=== PATIENT | female | born 1960 | race Two or more races ===

== ENCOUNTER 2023-12-07 18:19 | Inpatient (IN) | payer OTHER, MEDICAID ==
[~2023-12-07] VITALS: Ht 170.2 cm; Wt 63.4 kg
[2023-12-07 20:15] LABS: Basophils # (auto) 0.1 10 ^3/uL (0-0.2); Basophils % (auto) 0.6 % (0.0-2.0); Eosinophils # (auto) 0 10 ^3/uL (0-0.8); Eosinophils % (auto) 0.2 % (0.0-7.0); Hematocrit 45.7 % (36.0-46.0); Hemoglobin 15.6 g/dL (12.2-16.2); Lymphocytes # (auto) 0.8 10 ^3/uL (0.4-5.4); Lymphocytes % (auto) 7.9 % (10.0-50.0); Mean Corpuscular Hemoglobin 32.6 pg (28.0-32.0); Mean Corpuscular Hgb Conc. 34.1 g/dL (32.0-36.0); Mean Corpuscular Volume 95.6 fL (80.0-100.0); Monocytes # (auto) 0.6 10 ^3/uL (0-1.3); Monocytes % (auto) 5.9 % (0.0-12.0); Neutrophils # (auto) 8.7 10 ^3/uL (1.6-8.6); Neutrophils % (auto) 85.4 % (37.0-80.0); Nucleated Red Blood Cells % 0.1 %; Red Blood Cells 4.78 10^6/uL (4.0-5.20); Red Cell Distribution Width 12.2 % (11.8-14.3); White Blood Cell 10.2 10^3/uL (4.4-10.8)
[2023-12-07] MEDS: ONDANSETRON HCL 4 MG/2 ML VIAL IV ONE ×2 (20:21→21:40)
[2023-12-07] MEDS: SODIUM CHLORIDE 0.9% 1,000 ML IV ONE (20:21)
[2023-12-07] MEDS: MORPHINE SULFATE 4 MG/ML SYR/VIAL IV ONE ×2 (20:22→21:41)
[2023-12-07 20:25] LABS: INR 0.95 (0.9-1.15); Partial Thromboplastin Time 28.3 SEC (24.5-34.5)
[2023-12-07 20:36] LABS: Alanine Aminotransferase 17 U/L (7-40); Albumin 3.9 g/dL (3.2-4.8); Alkaline Phosphatase 92 U/L (46-116); Anion Gap 9 (5-15); Aspartate Aminotransferase 23 U/L (13-40); BUN/Creatinine Ratio 7.6 (10.0-20.0); Bilirubin, Total 0.5 mg/dL (0.2-1.0); Blood Urea Nitrogen 5 mg/dL (9-23); Calcium 8.6 mg/dL (8.7-10.4); Carbon Dioxide 26 mmol/L (20-30); Chloride 101 mmol/L (98-107); Magnesium 1.8 mg/dL (1.6-2.6); Sodium 136 mmol/L (136-145); Total Protein 6.4 g/dL (5.7-8.2)
[2023-12-07 20:41] LABS: Glucose 446 mg/dL (74-106)
[2023-12-07 23:27] VITALS: PULSE 78; RESP 20; O2SAT 94
[2023-12-08] VITALS (9 sets, daily range): BP systolic 119–143; BP diastolic 53–64; PULSE 78–89; RESP 12–19; TEMP 97.9–98.8; O2SAT 90–100
[2023-12-08] MEDS: ONDANSETRON HCL 4 MG/2 ML VIAL IV ONE (00:20)
[2023-12-08] MEDS: HYDROmorphone HCL 2 MG/ML VL/or syr IV ONE ×2 (00:21→11:35)
[2023-12-08] MEDS ORDERED: DEXTROSE (50%) 50ML SYRG IV PRN (00:30)
[2023-12-08] MEDS ORDERED: ACETAMINOPHEN 325 MG TAB PO PRN (00:30)
[2023-12-08] MEDS ORDERED: ONDANSETRON HCL 4 MG/2 ML VIAL IV PRN (00:30)
[2023-12-08] MEDS: SODIUM CHLORIDE 0.9% 1,000 ML IV SCH (01:42)
[2023-12-08] MEDS ORDERED: NITROGLYCERIN 0.4 MG SL TAB SL PRN (02:30)
[2023-12-08] MEDS: HYDROmorphone HCL 2 MG/ML VL/or syr IV PRN (03:11)
[2023-12-08] MEDS: HYDROcodone-ACET 5/325MG TAB PO PRN (05:13)
[2023-12-08 05:47] LABS: Alanine Aminotransferase 20 U/L (7-40); Albumin 3.8 g/dL (3.2-4.8); Alkaline Phosphatase 93 U/L (46-116); Anion Gap 9 (5-15); Aspartate Aminotransferase 21 U/L (13-40); BUN/Creatinine Ratio 12.5 (10.0-20.0); Blood Urea Nitrogen 8 mg/dL (9-23); Calcium 8.7 mg/dL (8.7-10.4); Carbon Dioxide 27 mmol/L (20-30); Chloride 102 mmol/L (98-107); Potassium 4.4 mmol/L (3.5-5.1); Sodium 138 mmol/L (136-145)
[2023-12-08 05:48] LABS: Basophils # (auto) 0 10 ^3/uL (0-0.2); Basophils % (auto) 0.4 % (0.0-2.0); Bilirubin, Total 0.8 mg/dL (0.2-1.0); Eosinophils # (auto) 0 10 ^3/uL (0-0.8); Eosinophils % (auto) 0.1 % (0.0-7.0); Hematocrit 43.7 % (36.0-46.0); Hemoglobin 14.8 g/dL (12.2-16.2); Lymphocytes # (auto) 0.8 10 ^3/uL (0.4-5.4); Lymphocytes % (auto) 8.5 % (10.0-50.0); Mean Corpuscular Hemoglobin 32.6 pg (28.0-32.0); Mean Corpuscular Hgb Conc. 33.8 g/dL (32.0-36.0); Mean Corpuscular Volume 96.4 fL (80.0-100.0); Monocytes # (auto) 0.7 10 ^3/uL (0-1.3); Monocytes % (auto) 7.6 % (0.0-12.0); Neutrophils # (auto) 8.2 10 ^3/uL (1.6-8.6); Neutrophils % (auto) 83.4 % (37.0-80.0); Nucleated Red Blood Cells % 0.1 %; Red Blood Cells 4.53 10^6/uL (4.0-5.20); Total Protein 6.2 g/dL (5.7-8.2); White Blood Cell 9.8 10^3/uL (4.4-10.8)
[2023-12-08 05:53] LABS: Glucose 409 mg/dL (74-106)
[2023-12-08] MEDS: ACCU-CHEK COMFORT CURVE STRIP VI SCH (06:38)
[2023-12-08] MEDS: InsuLIN REG 1unit/0.01ml Soln (100units/ml) SC SCH ×2 (06:43→22:12)
[2023-12-08] MEDS: ENOXAPARIN SOD 40 MG/0.4 ML SYRINGE SC SCH (09:32)
[2023-12-08 09:42] LABS: Urine Bacteria NONE SEEN /hpf (None Seen); Urine Blood Negative /uL (Negative); Urine Clarity Clear (Clear); Urine Color Colorless (Yellow); Urine Protein, UAD Negative (Negative); Urine Specific Gravity 1.039 (1.001-1.035); Urine Urobilinogen Normal (Negative); Urine WBC <1 /hpf (0 - 5)
[2023-12-08] MEDS: HYDROcodone-ACET 10/325MG TAB PO PRN ×2 (13:54→18:07)
[2023-12-08] MEDS: INSULIN LANTUS (GLARGINE) 1 /0.01ml (100units/ml) SC SCH (13:57)
[2023-12-08] MEDS: ALBUTEROL SULF 2.5 MG/0.5ML(0.5%) NEB SOLN NEB PRN (16:25)
[2023-12-08] MEDS: ALBUTEROL SULF 2.5 MG/0.5ML(0.5%) NEB SOLN NEB SCH (19:41)
[2023-12-08] MEDS: IPRATROPIUM BROM 0.5 MG/2.5ML INH SOL NEB SCH (19:42)
[2023-12-09] VITALS (15 sets, daily range): BP systolic 89–138; BP diastolic 46–82; PULSE 75–105; RESP 14–22; TEMP 97.6–99.2; O2SAT 91–98
[2023-12-09] MEDS ORDERED: SIMV80TA17 PO (00:36)
[2023-12-09] MEDS ORDERED: GABA-339 PO (00:36)
[2023-12-09] MEDS ORDERED: TRAZ-228 PO (00:36)
[2023-12-09] MEDS ORDERED: INSLANTI SC (00:36)
[2023-12-09] MEDS ORDERED: LEVO25TA6 PO (00:36)
[2023-12-09] MEDS ORDERED: INSU100I28 IJ (00:36)
[2023-12-09] MEDS ORDERED: METF-371 PO (00:36)
[2023-12-09 06:33] LABS: Basophils # (auto) 0.1 10 ^3/uL (0-0.2); Basophils % (auto) 0.9 % (0.0-2.0); Eosinophils # (auto) 0.1 10 ^3/uL (0-0.8); Eosinophils % (auto) 0.7 % (0.0-7.0); Hematocrit 42.6 % (36.0-46.0); Hemoglobin 14.6 g/dL (12.2-16.2); Lymphocytes # (auto) 0.9 10 ^3/uL (0.4-5.4); Lymphocytes % (auto) 9.3 % (10.0-50.0); Mean Corpuscular Hemoglobin 32.9 pg (28.0-32.0); Mean Corpuscular Hgb Conc. 34.3 g/dL (32.0-36.0); Mean Corpuscular Volume 95.8 fL (80.0-100.0); Monocytes # (auto) 0.7 10 ^3/uL (0-1.3); Monocytes % (auto) 7.9 % (0.0-12.0); Neutrophils # (auto) 7.7 10 ^3/uL (1.6-8.6); Neutrophils % (auto) 81.2 % (37.0-80.0); Nucleated Red Blood Cells % 0.1 %; Red Blood Cells 4.44 10^6/uL (4.0-5.20); White Blood Cell 9.4 10^3/uL (4.4-10.8)
[2023-12-09 06:56] LABS: Alanine Aminotransferase 81 U/L (7-40); Albumin 3.7 g/dL (3.2-4.8); Alkaline Phosphatase 201 U/L (46-116); Anion Gap 6 (5-15); Aspartate Aminotransferase 170 U/L (13-40); Blood Urea Nitrogen 12 mg/dL (9-23); Carbon Dioxide 32 mmol/L (20-30); Chloride 104 mmol/L (98-107); Glucose 114 mg/dL (74-106); Potassium 3.7 mmol/L (3.5-5.1); Sodium 142 mmol/L (136-145)
[2023-12-09 06:57] LABS: Bilirubin, Total 0.7 mg/dL (0.2-1.0); Total Protein 5.9 g/dL (5.7-8.2)
[2023-12-09] MEDS ORDERED: diphenhdrAMINE HCL 50 MG/1 ML VL IV PRN (11:30)
[2023-12-09] MEDS ORDERED: LEVO125T7 PO (12:54)
[2023-12-09] MEDS: GABAPENTIN 300 MG CAP PO SCH (14:14)
[2023-12-09] MEDS: traMADol HCL 50 MG TAB PO ONE (18:54)
[2023-12-09] MEDS: traZODone HCL 50 MG TAB PO SCH (22:24)
[2023-12-10] VITALS (15 sets, daily range): BP systolic 92–137; BP diastolic 61–84; PULSE 90–110; RESP 12–18; TEMP 97.7–98.4; O2SAT 90–98
[2023-12-10] MEDS: LEVOTHYROXINE SODIUM 50 MCG TAB PO SCH (05:47)
[2023-12-10 06:11] LABS: Basophils # (auto) 0 10 ^3/uL (0-0.2); Basophils % (auto) 0.5 % (0.0-2.0); Eosinophils # (auto) 0.1 10 ^3/uL (0-0.8); Eosinophils % (auto) 1.1 % (0.0-7.0); Hematocrit 40.7 % (36.0-46.0); Hemoglobin 13.8 g/dL (12.2-16.2); Mean Corpuscular Hemoglobin 32.5 pg (28.0-32.0); Mean Corpuscular Volume 95.7 fL (80.0-100.0); Monocytes # (auto) 0.5 10 ^3/uL (0-1.3); Monocytes % (auto) 6.6 % (0.0-12.0); Neutrophils # (auto) 6.5 10 ^3/uL (1.6-8.6); Neutrophils % (auto) 79.8 % (37.0-80.0); Red Blood Cells 4.25 10^6/uL (4.0-5.20); Red Cell Distribution Width 11.8 % (11.8-14.3); White Blood Cell 8.2 10^3/uL (4.4-10.8)
[2023-12-10 06:18] LABS: Anion Gap 7 (5-15); Carbon Dioxide 30 mmol/L (20-30); Chloride 102 mmol/L (98-107); Potassium 3.6 mmol/L (3.5-5.1); Sodium 139 mmol/L (136-145)
[2023-12-10 06:19] LABS: Calcium 8.5 mg/dL (8.5-10.1)
[2023-12-10 06:24] LABS: BUN/Creatinine Ratio 39.6 (10.0-20.0); Blood Urea Nitrogen 19 mg/dL (9-23); Glucose 127 mg/dL (74-106)
[2023-12-11] VITALS (22 sets, daily range): BP systolic 87–131; BP diastolic 51–89; PULSE 81–101; RESP 18–20; TEMP 97.8–98.3; O2SAT 86–100
[2023-12-11 06:23] LABS: Anion Gap 6 (5-15); Carbon Dioxide 32 mmol/L (20-30); Chloride 99 mmol/L (98-107); Potassium 3.8 mmol/L (3.5-5.1); Sodium 137 mmol/L (136-145)
[2023-12-11 06:24] LABS: Calcium 8.6 mg/dL (8.5-10.1)
[2023-12-11 06:27] LABS: Basophils # (auto) 0 10 ^3/uL (0-0.2); Basophils % (auto) 0.4 % (0.0-2.0); Eosinophils # (auto) 0.1 10 ^3/uL (0-0.8); Eosinophils % (auto) 0.9 % (0.0-7.0); Hematocrit 40.6 % (36.0-46.0); Hemoglobin 13.9 g/dL (12.2-16.2); Lymphocytes # (auto) 0.6 10 ^3/uL (0.4-5.4); Lymphocytes % (auto) 7.6 % (10.0-50.0); Mean Corpuscular Hemoglobin 32.8 pg (28.0-32.0); Mean Corpuscular Hgb Conc. 34.2 g/dL (32.0-36.0); Monocytes # (auto) 0.4 10 ^3/uL (0-1.3); Monocytes % (auto) 5.9 % (0.0-12.0); Neutrophils # (auto) 6.3 10 ^3/uL (1.6-8.6); Neutrophils % (auto) 85.2 % (37.0-80.0); Red Blood Cells 4.23 10^6/uL (4.0-5.20); Red Cell Distribution Width 12.1 % (11.8-14.3); White Blood Cell 7.4 10^3/uL (4.4-10.8)
[2023-12-11 06:29] LABS: BUN/Creatinine Ratio 24.5 (10.0-20.0); Blood Urea Nitrogen 12 mg/dL (9-23); Glucose 214 mg/dL (74-106)
[2023-12-11] MEDS ORDERED: MORPHINE SULF PF 5 MG/10 ML VIAL ONE (10:35)
[2023-12-11] MEDS ORDERED: KETAMINE 50mg/ML 1ml syringe ONE (10:35)
[2023-12-11] MEDS ORDERED: MIDAZOLAM HCL 2MG/2ML 2ml VIAL (1mg/ml) ONE (10:35)
[2023-12-11] MEDS ORDERED: fentaNYL CITRATE 100 MCG/2 ML VL ONE (10:35)
[2023-12-11] MEDS ORDERED: DexAMETHasone SOD PHOS 10MG/1ML VIAL INJ ONE (10:36)
[2023-12-11] MEDS ORDERED: PROPOFOL 10 MG/ML 20 ML IV ONE (10:36)
[2023-12-11] MEDS ORDERED: ONDANSETRON HCL 4 MG/2 ML VIAL ONE (10:36)
[2023-12-11] MEDS ORDERED: GLYCOPYRROLATE 0.2 MG/ML 1ML VIAL ONE (10:36)
[2023-12-11] MEDS: ceFAZolin 2 GM/D5W50ml 50 ML IV ONE (10:45)
[2023-12-11] MEDS: TRANEXAMIC ACID 20 ML ONE (13:50)
[2023-12-11] MEDS: BUPIVACAINE 0.5% P/F INJ 10 ML VIAL ONE (13:50)
[2023-12-11] MEDS ORDERED: ONDANSETRON HCL 4 MG/2 ML VIAL IV PRN (14:45)
[2023-12-11] MEDS: ACCU-CHEK COMFORT CURVE STRIP VI ONE (14:45)
[2023-12-11] MEDS ORDERED: NALOXONE HCL 0.4 MG/ML VIAL IV PRN (14:45)
[2023-12-11] MEDS ORDERED: diphenhdrAMINE HCL 50 MG/1 ML VL IV PRN (14:45)
[2023-12-11] MEDS ORDERED: DexAMETHasone SOD PHOS 10MG/1ML VIAL INJ IV PRN (14:45)
[2023-12-11] MEDS: LACTATED RINGER'S 1,000 ML IV SCH (15:15)
[2023-12-11] MEDS ORDERED: ceFAZolin 1GM/50ML 50 ML IV SCH (15:15)
[2023-12-11] MEDS: CLINDAMYCIN 600MG IV 50 ML IV SCH (18:16)
[2023-12-11] MEDS: ceFAZolin 1GM/50ML 50 ML IV SCH (20:12)
[2023-12-11] MEDS: KETOROLAC TROMETH 30 MG/ML 1ML VIAL IV PRN (20:26)
[2023-12-11] MEDS: SODIUM CHLORIDE 0.9% 500 ML IV ONE (23:33)
[2023-12-12] VITALS (87 sets, daily range): BP systolic 62–146; BP diastolic 41–117; PULSE 56–95; RESP 11–23; TEMP 97.7–98.5; O2SAT 84–100
[2023-12-12] MEDS: PHENYLEPHRINE IV 250 ML IV SCH (03:25)
[2023-12-12 04:14] LABS: Basophils # (auto) 0 10 ^3/uL (0-0.2); Eosinophils # (auto) 0 10 ^3/uL (0-0.8); Hematocrit 39.1 % (36.0-46.0); Hemoglobin 13.2 g/dL (12.2-16.2); Lymphocytes # (auto) 0.4 10 ^3/uL (0.4-5.4); Lymphocytes % (auto) 5.2 % (10.0-50.0); Mean Corpuscular Hemoglobin 32.6 pg (28.0-32.0); Mean Corpuscular Hgb Conc. 33.9 g/dL (32.0-36.0); Mean Corpuscular Volume 96.4 fL (80.0-100.0); Monocytes # (auto) 0.3 10 ^3/uL (0-1.3); Neutrophils # (auto) 7.2 10 ^3/uL (1.6-8.6); Neutrophils % (auto) 90.8 % (37.0-80.0); Nucleated Red Blood Cells % 0.2 %; Red Blood Cells 4.06 10^6/uL (4.0-5.20); White Blood Cell 7.9 10^3/uL (4.4-10.8)
[2023-12-12 05:01] LABS: Alanine Aminotransferase 46 U/L (7-40); Albumin 3.2 g/dL (3.2-4.8); Alkaline Phosphatase 173 U/L (46-116); Anion Gap 11 (5-15); Aspartate Aminotransferase 22 U/L (13-40); BUN/Creatinine Ratio 30.5 (10.0-20.0); Bilirubin, Total 0.6 mg/dL (0.2-1.0); Blood Urea Nitrogen 18 mg/dL (9-23); Calcium 8.7 mg/dL (8.5-10.1); Carbon Dioxide 25 mmol/L (20-30); Chloride 99 mmol/L (98-107); Glucose 350 mg/dL (74-106); Potassium 4.4 mmol/L (3.5-5.1); Sodium 135 mmol/L (136-145); Total Protein 5.2 g/dL (5.7-8.2)
[2023-12-12] MEDS ORDERED: DEXTROSE (50%) 50ML SYRG IV PRN (14:30)
[2023-12-12] MEDS: SODIUM CHLORIDE 0.9% 250 ML IV ONE (15:45)
[2023-12-12] MEDS: ACCU-CHEK COMFORT CURVE STRIP VI SCH (16:39)
[2023-12-12] MEDS: InsuLIN REG 1unit/0.01ml Soln (100units/ml) SC SCH (16:48)
[2023-12-12] MEDS: Glucerna Carbsteady SHAKE Vanilla 8oz PO SCH (18:25)
[2023-12-12] MEDS: MORPHINE SULFATE INJ 2 MG/ml SYRG IV PRN (20:02)
[2023-12-12] MEDS ORDERED: ALBUMIN 5% 250 ML IV PRN (20:15)
[2023-12-13] VITALS (14 sets, daily range): BP systolic 98–119; BP diastolic 45–59; PULSE 70–101; RESP 16–20; TEMP 98–98.9; O2SAT 90–99
[2023-12-13 06:11] LABS: Basophils # (auto) 0 10 ^3/uL (0-0.2); Basophils % (auto) 0.4 % (0.0-2.0); Eosinophils # (auto) 0.1 10 ^3/uL (0-0.8); Eosinophils % (auto) 1.5 % (0.0-7.0); Hemoglobin 10.9 g/dL (12.2-16.2); Lymphocytes % (auto) 15.8 % (10.0-50.0); Mean Corpuscular Hemoglobin 32.9 pg (28.0-32.0); Mean Corpuscular Hgb Conc. 34.2 g/dL (32.0-36.0); Mean Corpuscular Volume 96.3 fL (80.0-100.0); Monocytes # (auto) 0.5 10 ^3/uL (0-1.3); Monocytes % (auto) 8.5 % (0.0-12.0); Neutrophils # (auto) 4.5 10 ^3/uL (1.6-8.6); Neutrophils % (auto) 73.8 % (37.0-80.0); Red Blood Cells 3.32 10^6/uL (4.0-5.20); Red Cell Distribution Width 11.9 % (11.8-14.3); White Blood Cell 6.2 10^3/uL (4.4-10.8)
[2023-12-13 06:22] LABS: Alanine Aminotransferase 21 U/L (7-40); Albumin 2.8 g/dL (3.2-4.8); Alkaline Phosphatase 117 U/L (46-116); Anion Gap 4 (5-15); Aspartate Aminotransferase 11 U/L (13-40); BUN/Creatinine Ratio 59.1 (10.0-20.0); Blood Urea Nitrogen 26 mg/dL (9-23); Calcium 8.5 mg/dL (8.5-10.1); Carbon Dioxide 30 mmol/L (20-30); Chloride 106 mmol/L (98-107); Glucose 139 mg/dL (74-106); Potassium 3.8 mmol/L (3.5-5.1); Sodium 140 mmol/L (136-145)
[2023-12-13 06:23] LABS: Bilirubin, Total 0.4 mg/dL (0.2-1.0); Total Protein 4.8 g/dL (5.7-8.2)
[2023-12-13] MEDS: INSULIN LANTUS (GLARGINE) 1 /0.01ml (100units/ml) SC SCH (09:07)
[2023-12-13] MEDS: cefTRIAXone 1GM/50ML D5W 50 ML IV SCH (15:22)
[2023-12-14] VITALS (12 sets, daily range): BP systolic 102–134; BP diastolic 44–78; PULSE 81–102; RESP 16–18; TEMP 98.1–98.7; O2SAT 90–98
[2023-12-14 05:39] LABS: Hematocrit 35.5 % (36.0-46.0); Hemoglobin 12.2 g/dL (12.2-16.2)
[2023-12-14] MEDS: DOCUSATE SOD 100 MG CAP PO PRN (12:02)
[2023-12-14] MEDS: IPRATROPIUM BROM 0.5 MG/2.5ML INH SOL NEB SCH (19:50)
[2023-12-14] MEDS: ALBUTEROL SULF 2.5 MG/0.5ML(0.5%) NEB SOLN NEB SCH (19:50)
[2023-12-15] VITALS (11 sets, daily range): BP systolic 114–153; BP diastolic 62–75; PULSE 54–110; RESP 18–20; TEMP 98.3–98.7; O2SAT 90–99
[2023-12-15] MEDS: LACTULOSE 20Gm/30ML SOLN PO ONE (10:31)
[2023-12-15] MEDS: MORPHINE SULFATE INJ 2 MG/ml SYRG IV PRN (12:30)
[2023-12-16] VITALS (14 sets, daily range): BP systolic 108–123; BP diastolic 59–67; PULSE 81–99; RESP 15–18; TEMP 98.1–98.8; O2SAT 82–97
[2023-12-16 07:13] LABS: Basophils # (auto) 0 10 ^3/uL (0-0.2); Basophils % (auto) 0.6 % (0.0-2.0); Eosinophils # (auto) 0.2 10 ^3/uL (0-0.8); Eosinophils % (auto) 2.5 % (0.0-7.0); Hematocrit 35.1 % (36.0-46.0); Hemoglobin 11.8 g/dL (12.2-16.2); Lymphocytes # (auto) 0.8 10 ^3/uL (0.4-5.4); Mean Corpuscular Hgb Conc. 33.5 g/dL (32.0-36.0); Mean Corpuscular Volume 95.5 fL (80.0-100.0); Monocytes # (auto) 0.6 10 ^3/uL (0-1.3); Monocytes % (auto) 8.2 % (0.0-12.0); Neutrophils # (auto) 5.7 10 ^3/uL (1.6-8.6); Neutrophils % (auto) 77.7 % (37.0-80.0); Red Blood Cells 3.68 10^6/uL (4.0-5.20); Red Cell Distribution Width 12.3 % (11.8-14.3); White Blood Cell 7.3 10^3/uL (4.4-10.8)
[2023-12-16 07:35] LABS: Alanine Aminotransferase 29 U/L (7-40); Alkaline Phosphatase 112 U/L (46-116); Anion Gap 5 (5-15); Aspartate Aminotransferase 30 U/L (13-40); BUN/Creatinine Ratio 42.2 (10.0-20.0); Bilirubin, Total 0.5 mg/dL (0.2-1.0); Blood Urea Nitrogen 19 mg/dL (9-23); Calcium 8.3 mg/dL (8.5-10.1); Carbon Dioxide 29 mmol/L (20-30); Chloride 105 mmol/L (98-107); Glucose 80 mg/dL (74-106); Potassium 3.8 mmol/L (3.5-5.1); Sodium 139 mmol/L (136-145); Total Protein 5.1 g/dL (5.7-8.2)
[2023-12-16] MEDS ORDERED: DEXTROSE (50%) 50ML SYRG IV PRN (11:15)
[2023-12-16] MEDS: ACCU-CHEK COMFORT CURVE STRIP VI SCH (11:40)
[2023-12-16] MEDS: InsuLIN REG 1unit/0.01ml Soln (100units/ml) SC SCH ×2 (11:43→21:38)
[2023-12-17] VITALS (14 sets, daily range): BP systolic 108–153; BP diastolic 52–83; PULSE 68–94; RESP 14–18; TEMP 97.7–98.6; O2SAT 90–99
[2023-12-18] VITALS (9 sets, daily range): BP systolic 110–116; BP diastolic 60–66; PULSE 77–94; RESP 15–20; TEMP 97.9–98.6; O2SAT 91–99
[2023-12-18] MEDS: INSULIN LANTUS (GLARGINE) 1 /0.01ml (100units/ml) SC SCH (08:46)
[2023-12-18] MEDS: HYDROcodone-ACET 5/325MG TAB PO PRN (13:34)
[2023-12-19] VITALS (13 sets, daily range): BP systolic 105–134; BP diastolic 56–78; PULSE 79–89; RESP 16–19; TEMP 97.8–98.4; O2SAT 93–100
[2023-12-20] VITALS (11 sets, daily range): BP systolic 112–124; BP diastolic 62–66; PULSE 71–91; RESP 16–20; TEMP 98–98.1; O2SAT 91–98
[2023-12-20] MEDS ORDERED: INSLANTI SC (09:01)
[2023-12-20] MEDS ORDERED: ENO40SY SUBCUT ×2 (09:01→09:25)
[2023-12-20] MEDS: INSULIN LANTUS (GLARGINE) 1 /0.01ml (100units/ml) SC SCH (10:54)
== END 2023-12-20 15:35 | disposition home or self-care (01) | DRG 480 ==
LOC: ER 18:19 → EDBD 18:19 → TELE 12-08 02:30 → TELE-WESTW 12-08 23:09 → ICU WEST 12-12 02:59 → TELE-EAST 12-12 21:45 → EAST 12-13 01:45 → TELE-EAST 12-13 07:28 → EAST 12-16 11:07
PROVIDERS: ADMIT Nurse Practitioner Family; ATTEND Internal Medicine
PROC: 0QS704Z Reposition Left Upper Femur with Internal Fixation Device, Open Approach (ICD-10-PCS; principal; 2023-12-08)
DX: S72.142A Displaced intertrochanteric fracture of left femur, initial encounter for closed fracture (principal); J96.20 Acute and chronic respiratory failure, unspecified whether with hypoxia or hypercapnia; E11.65 Type 2 diabetes mellitus with hyperglycemia; W01.0XXA Fall on same level from slipping, tripping and stumbling without subsequent striking against object, initial encounter; J44.9 Chronic obstructive pulmonary disease, unspecified; E03.9 Hypothyroidism, unspecified; E11.42 Type 2 diabetes mellitus with diabetic polyneuropathy; G62.9 Polyneuropathy, unspecified; E78.00 Pure hypercholesterolemia, unspecified; I95.9 Hypotension, unspecified; F17.210 Nicotine dependence, cigarettes, uncomplicated; R74.01 Elevation of levels of liver transaminase levels; I51.7 Cardiomegaly; Z79.4 Long term (current) use of insulin; Z80.9 Family history of malignant neoplasm, unspecified; Z79.899 Other long term (current) drug therapy; Z59.7 Insufficient social insurance and welfare support; Y93.89 Activity, other specified; Y92.89 Other specified places as the place of occurrence of the external cause; Y99.8 Other external cause status
CPT/HCPCS: 36415; 71045; 72170; 72192; 73501; 73502; 76000; 80048; 80053; 81001; 82962; 83036; 83735; 84443; 85014; 85018; 85025; 85610; 85730; 86850; 86900; 86901; 87081; 87086; 93306; 94640; 96374; 96375; 97110; 97116; 97163; 97530; A4565; G0378; J1100; J1815; J1885; J2250; J2405; J2704; J3490

== ENCOUNTER 2024-01-27 08:38 | Inpatient (IN) | payer MEDICAID, OTHER ==
[~2024-01-27] VITALS: Ht 165.1 cm; Wt 44.1 kg
[~2024-01-27 08:38] MED LIST: ENO40SY SUBCUT; GABA-339 PO; INSLANTI SC; INSU100I28 IJ; LEVO125T7 PO; METF-371 PO; SIMV80TA17 PO; TRAZ-228 PO
[2024-01-27 10:45] LABS: Basophils # (auto) 0.1 10 ^3/uL (0-0.2); Basophils % (auto) 0.6 % (0.0-2.0); Eosinophils # (auto) 0 10 ^3/uL (0-0.8); Eosinophils % (auto) 0.4 % (0.0-7.0); Hematocrit 48.3 % (36.0-46.0); Hemoglobin 16.5 g/dL (12.2-16.2); Lymphocytes # (auto) 1.6 10 ^3/uL (0.4-5.4); Lymphocytes % (auto) 17.3 % (10.0-50.0); Mean Corpuscular Hemoglobin 32.4 pg (28.0-32.0); Mean Corpuscular Hgb Conc. 34.1 g/dL (32.0-36.0); Monocytes # (auto) 0.7 10 ^3/uL (0-1.3); Monocytes % (auto) 7.6 % (0.0-12.0); Neutrophils # (auto) 6.8 10 ^3/uL (1.6-8.6); Neutrophils % (auto) 74.1 % (37.0-80.0); Nucleated Red Blood Cells % 0.1 %; Red Blood Cells 5.08 10^6/uL (4.0-5.20); Red Cell Distribution Width 12.9 % (11.8-14.3); White Blood Cell 9.3 10^3/uL (4.4-10.8)
[2024-01-27 10:58] LABS: Chloride 101 mmol/L (98-107); Sodium 136 mmol/L (136-145)
[2024-01-27 10:59] LABS: Anion Gap 6 (5-15); Calcium 9.7 mg/dL (8.5-10.1); Carbon Dioxide 29 mmol/L (20-30)
[2024-01-27 11:04] LABS: BUN/Creatinine Ratio 15.5 (10.0-20.0); Blood Urea Nitrogen 9 mg/dL (9-23); Glucose 141 mg/dL (74-106)
[2024-01-27 11:45] LABS: Erythrocyte Sedimentation Rate 10 mm/hr (0-20)
[2024-01-27] MEDS ORDERED: ONDANSETRON HCL 4 MG/2 ML VIAL IV PRN (15:45)
[2024-01-27] MEDS ORDERED: ACETAMINOPHEN 325 MG TAB PO PRN (15:45)
[2024-01-27] MEDS ORDERED: MORPHINE SULFATE INJ 2 MG/ml SYRG IV PRN (15:45)
[2024-01-27] MEDS ORDERED: NITROGLYCERIN 0.4 MG SL TAB SL PRN (15:45)
[2024-01-27] MEDS ORDERED: IPRATROPIUM BROM 0.5 MG/2.5ML INH SOL NEB PRN (16:15)
[2024-01-27] MEDS ORDERED: ALBUTEROL SULF 2.5 MG/0.5ML(0.5%) NEB SOLN NEB PRN (16:15)
[2024-01-27] MEDS ORDERED: DEXTROSE (50%) 50ML SYRG IV PRN (16:15)
[2024-01-27] MEDS: HYDROcodone-ACET 5/325MG TAB PO PRN (17:03)
[2024-01-27] MEDS: cefTRIAXone 1GM/50ML D5W 50 ML IV ONE (17:03)
[2024-01-27] MEDS: ACCU-CHEK COMFORT CURVE STRIP VI SCH (17:22)
[2024-01-27] MEDS: InsuLIN REG 1unit/0.01ml Soln (100units/ml) SC SCH (17:26)
[2024-01-27] MEDS: GABAPENTIN 300 MG CAP PO SCH (23:06)
[2024-01-27 23:40] VITALS: PULSE 82; RESP 14; O2SAT 95
[2024-01-28] VITALS (7 sets, daily range): BP systolic 103–130; BP diastolic 57–81; PULSE 81–95; RESP 14–19; TEMP 97.6–98.2; O2SAT 92–97
[2024-01-28] MEDS: MORPHINE SULFATE INJ 2 MG/ml SYRG IV PRN (00:30)
[2024-01-28] MEDS: LEVOTHYROXINE SODIUM 100 MCG TAB PO SCH (06:16)
[2024-01-28] MEDS: LEVOTHYROXINE SODIUM 25 MCG TAB PO SCH (06:16)
[2024-01-28 06:30] LABS: Albumin 3.8 g/dL (3.2-4.8); Alkaline Phosphatase 85 U/L (46-116); Anion Gap 5 (5-15); Blood Urea Nitrogen 16 mg/dL (9-23); Carbon Dioxide 31 mmol/L (20-30); Chloride 103 mmol/L (98-107); Glucose 78 mg/dL (74-106); Potassium 3.8 mmol/L (3.5-5.1); Sodium 139 mmol/L (136-145)
[2024-01-28 06:31] LABS: Aspartate Aminotransferase 12 U/L (13-40); Total Protein 5.8 g/dL (5.7-8.2)
[2024-01-28 06:32] LABS: Basophils # (auto) 0 10 ^3/uL (0-0.2); Basophils % (auto) 0.7 % (0.0-2.0); Eosinophils # (auto) 0.1 10 ^3/uL (0-0.8); Eosinophils % (auto) 1.8 % (0.0-7.0); Hematocrit 41.3 % (36.0-46.0); Lymphocytes # (auto) 1.3 10 ^3/uL (0.4-5.4); Lymphocytes % (auto) 20.3 % (10.0-50.0); Mean Corpuscular Hemoglobin 31.8 pg (28.0-32.0); Mean Corpuscular Hgb Conc. 33.9 g/dL (32.0-36.0); Mean Corpuscular Volume 93.9 fL (80.0-100.0); Monocytes # (auto) 0.6 10 ^3/uL (0-1.3); Monocytes % (auto) 9.3 % (0.0-12.0); Neutrophils # (auto) 4.4 10 ^3/uL (1.6-8.6); Neutrophils % (auto) 67.9 % (37.0-80.0); Nucleated Red Blood Cells % 0.2 %; Red Blood Cells 4.39 10^6/uL (4.0-5.20); Red Cell Distribution Width 12.9 % (11.8-14.3); White Blood Cell 6.4 10^3/uL (4.4-10.8)
[2024-01-28 06:46] LABS: Alanine Aminotransferase < 9 U/L (7-40)
[2024-01-28] MEDS: cefTRIAXone 1GM/50ML D5W 50 ML IV SCH (10:19)
[2024-01-28] MEDS: traZODone HCL 50 MG TAB PO SCH (10:38)
[2024-01-28] MEDS: ATORVASTATIN 20 MG TAB PO SCH (10:39)
[2024-01-28] MEDS: INSULIN LANTUS (GLARGINE) 1 /0.01ml (100units/ml) SC SCH (10:39)
[2024-01-28] MEDS: GABAPENTIN 300 MG CAP ONE ×2 (10:49→10:50)
[2024-01-28] MEDS: LEVOTHYROXINE SODIUM 25 MCG TAB ONE (10:50)
[2024-01-28] MEDS: LEVOTHYROXINE SODIUM 100 MCG TAB ONE (10:50)
[2024-01-28] MEDS: METHOCARBAMOL 500 MG TAB PO SCH (14:05)
[2024-01-29 01:01] VITALS: BP 110/67; PULSE 81; RESP 16; TEMP 97.7; O2SAT 92
[2024-01-29] MEDS: DOCUSATE SOD 100 MG CAP PO PRN (03:36)
[2024-01-29 05:00] VITALS: BP 136/77; PULSE 82; RESP 16; TEMP 98; O2SAT 94
[2024-01-29] MEDS ORDERED: METH-1181 PO (09:14)
[2024-01-29] MEDS ORDERED: CEPH500C PO (09:14)
[2024-01-29 10:01] VITALS: BP 115/65; PULSE 86; RESP 16; TEMP 98.2; O2SAT 94
[2024-01-29 13:15] VITALS: BP 135/69; PULSE 82; RESP 17; TEMP 98.6; O2SAT 96
== END 2024-01-29 15:29 | disposition home or self-care (01) | DRG 383 ==
LOC: ER 08:38 → OVERFLOW 15:42 → CENTRAL 01-28 01:50
PROVIDERS: ADMIT Nurse Practitioner Family; ATTEND Family Medicine
DX: L03.116 Cellulitis of left lower limb (principal); E11.42 Type 2 diabetes mellitus with diabetic polyneuropathy; E03.9 Hypothyroidism, unspecified; J44.9 Chronic obstructive pulmonary disease, unspecified; Z96.642 Presence of left artificial hip joint; F17.210 Nicotine dependence, cigarettes, uncomplicated; Z79.4 Long term (current) use of insulin; Z79.899 Other long term (current) drug therapy; Z90.710 Acquired absence of both cervix and uterus; Z90.49 Acquired absence of other specified parts of digestive tract; Z71.6 Tobacco abuse counseling; Z80.9 Family history of malignant neoplasm, unspecified
CPT/HCPCS: 36415; 73700; 80048; 80053; 82962; 85025; 85652; 96365; 96372; G0378; J1815